=== PATIENT | female | born 1975 | race Caucasian/White ===

== ENCOUNTER 2021-07-03 02:18 | Emergency (ER) | payer BC, OTHER ==
[2021-07-03 02:55] LABS: HEMOGLOBIN 10.8 gm/dl (12.3-15.3); RED BLOOD COUNT 4.48 M/UL (4.00-5.10); WHITE BLOOD COUNT 10.5 K/UL (4.5-11.0)
[2021-07-03 06:20] LABS: BUN/CREATININE RATIO 16 (0-10)
== END 2021-07-03 05:03 | disposition home or self-care (01) ==
LOC: ER1 02:18
PROVIDERS: Physician Assistant
DX: F41.1 Generalized anxiety disorder (principal); R00.2 Palpitations; Z88.0 Allergy status to penicillin; Z88.8 Allergy status to other drugs, medicaments and biological substances
CPT/HCPCS: 71045; 80053; 82550; 82553; 83735; 83874; 84439; 84443; 84484; 84703; 85025; 93005; 99284; Q0177